=== PATIENT | male | born 1985 | race American Indian/Alaskan Native ===

== ENCOUNTER 2016-11-27 02:32 | Emergency (ER) | payer SELFPAY ==
[2016-11-27 02:47] VITALS: BP 164/98
[2016-11-27 03:18] LABS: Basophils % (Auto) 0.4 % (0.0-1.8); Eosinophils % (Auto) 3.5 % (0.0-4.3); Hematocrit 44.8 % (35.5-45.6); Hemoglobin 15.1 gm/dl (11.8-15.2); Mean Corpuscular HGB Conc 34 % (32-34); Mean Corpuscular Hemoglobin 30 pg (28-32); Mean Corpuscular Volume 90 fl (84-94); Platelet Count 283 K/mm3 (140-440); Red Blood Count 4.98 M/mm3 (3.65-5.03); Red Cell Distribution Width 13.7 % (13.2-15.2); White Blood Count 12.1 K/mm3 (4.5-11.0)
[2016-11-27 03:29] LABS: Anion Gap 22 mmol/L; BUN/Creatinine Ratio 14.44; Blood Urea Nitrogen 13 mg/dL (9-20); Calcium 9.2 mg/dL (8.4-10.2); Carbon Dioxide 22 mmol/L (22-30); Chloride 100.6 mmol/L (98-107); Glucose 120 mg/dL (75-100); Potassium 3.4 mmol/L (3.6-5.0); Sodium 141 mmol/L (137-145)
--- NOTE | 2016-11-30 14:52 | ED Elopement Review ---
ED Pt Elopement review - Results review Lab results: Laboratory Tests 11/27/16 11/27/16 02:48 02:48 WBC 12.1 H RBC 4.98 Hgb 15.1 Hct 44.8 MCV 90 MCH 30 MCHC 34 RDW 13.7 Plt Count 283 Lymph % (Auto) 25.0 Luna % (Auto) 5.7 Eos % (Auto) 3.5 Baso % (Auto) 0.4 Lymph # 3.0 Luna # 0.7 Eos # 0.4 Baso # 0.0 Seg Neutrophils % 65.4 Seg Neutrophils # 7.9 H Sodium 141 Potassium 3.4 L Chloride 100.6 Carbon Dioxide 22 Anion Gap 22 BUN 13 Creatinine 0.9 Estimated GFR > 60 BUN/Creatinine Ratio 14.44 Glucose 120 H Calcium 9.2 Troponin T < 0.010 - Call Back decision Pt Call Back Decision: No action required
== END 2016-11-27 03:00 | disposition left against medical advice (07) ==
LOC: ED 02:32
DX: R07.9 Chest pain, unspecified (principal); R51 Headache; R06.00 Dyspnea, unspecified; I10 Essential (primary) hypertension; Z53.21 Procedure and treatment not carried out due to patient leaving prior to being seen by health care provider
CPT/HCPCS: 36415; 80048; 84484; 85025; 93005; 93010

== ENCOUNTER 2018-01-22 07:33 | Emergency (ER) | payer BC | END 2018-01-22 17:18 | disposition left against medical advice (07) | LOC: ED 07:33 | DX: R06.02 Shortness of breath (principal); Z53.21 Procedure and treatment not carried out due to patient leaving prior to being seen by health care provider ==

== ENCOUNTER 2020-05-10 18:25 | Emergency (ER) | payer SELFPAY ==
--- NOTE | 2020-05-10 18:51 | Emergency Department Report ---
ED General Adult HPI - General Chief complaint: Arrhythmia/Palpitations Stated complaint: DEFIBULATOR GOING OFF PUI?: No Time Seen by Provider: 05/10/20 18:35 Source: patient, EMS ( EMS documentation not available at time of chart dictation ), RN notes reviewed Mode of arrival: Stretcher Limitations: No Limitations - History of Present Illness Initial comments: The patient was evaluated in the emergency department for symptoms described in the history of present illness. He/she was evaluated in the context of the global COVID-19 pandemic, which necessitated consideration that the patient might be at risk for infection with the virus that causes COVID-19. Institutional protocols and algorithms that pertain to the evaluation of patients at risk for COVID-19 are in a state of rapid change based on information released by regulatory bodies including the CDC and federal and state organizations. These policies and algorithms were followed during the patient's care in the emergency department. Please note that these policies, procedures and recommendations changed on a rapid basis. Cardiology: Dr. Sanz at [facility] Patient is a 34-year-old gentleman, he is not known to myself previously. He has a history of cardiomyopathy, with an indwelling ICD/"pacemaker" in situ. It is uncertain to me if he has an ischemic or nonischemic cardiomyopathy. He also has a history of hypertension. He is brought to the hospital by emergency medical services. Patient states "I have not been feeling well for the past few days." He reports a sour taste and sour smell, however, denies loss of taste, denies loss of smell, reports feeling intermittently nauseated, and states that this afternoon, he developed central left-sided and right-sided intermittent nonradiating nonexertional chest pain, shortly thereafter, felt a sensation of "white light", and believe that his defibrillator activated. He endorses compliance with his medications. He stopped smoking tobacco a few weeks ago. He consumes marijuana on a daily ba sis. He denies other drug utilization. He denies headache, neck pain, states he is basically pain-free at this time, denies urinary symptoms, denies focal extremity weakness/numbness. He denies DVT and pulmonary embolism risk factors. He does endorse diffuse intermittent abdominal cramping, present for weeks, years, states "sometimes my gallbladder acts up." He took an aspirin prior to arrival -: Sudden, This afternoon Location: chest, abdomen Radiation: non-radiation Quality: other Consistency: other Improves with: other Worsens with: other - Related Data Home Medications Medication Instructions Recorded Confirmed Last Taken AtorvaSTATin [Lipitor] 20 mg PO QHS 05/10/20 05/10/20 05/09/20 Potassium Chloride [K-Dur] 10 meq PO Q48HR 05/10/20 05/10/20 Unknown Spironolactone [Aldactone] 25 mg PO QDAY 05/10/20 05/10/20 05/10/20 Torsemide [Demadex] 40 mg PO Q48HR 05/10/20 05/10/20 Unknown carvediloL [Coreg] 12.5 mg PO BID 05/10/20 05/10/20 Unknown lisinopriL 20 mg PO DAILY 05/10/20 05/10/20 05/10/20 Allergies Allergy/AdvReac Type Severity Reaction Status Date / Time No Known Allergies Allergy Verified 11/27/16 02:46 ED Review of Systems ROS: Stated complaint: DEFIBULATOR GOING OFF Other details as noted in HPI Constitutional: malaise. denies: fever Eyes: denies: eye discharge, vision change ENT: denies: congestion Respiratory: denies: cough, wheezing Cardiovascular: chest pain, palpitations, other Gastrointestinal: abdominal pain, nausea Genitourinary: denies: dysuria Musculoskeletal: myalgia Neurological: denies: weakness Hematological/Lymphatic: denies: easy bleeding ED Past Medical Hx - Past Medical History Previous Medical History?: Yes Hx Hypertension: Yes - Surgical History Past Surgical History?: Yes Additional Surgical History: hernia repair - Social History Smoking Status: Former Smoker Substance Use Type: Marijuana - Medications Home Medications: Home Medications Medication Instructions Recorded Confirmed Last Taken Type AtorvaSTATin [Lipitor] 20 mg PO QHS 05/10/20 05/10/20 05/09/20 History Potassium Chloride [K-Dur] 10 meq PO Q48HR 05/10/20 05/10/20 Unknown History Spironolactone [Aldactone] 25 mg PO QDAY 05/10/20 05/10/20 05/10/20 History Torsemide [Demadex] 40 mg PO Q48HR 05/10/20 05/10/20 Unknown History carvediloL [Coreg] 12.5 mg PO BID 10/12/20 10/12/20 Unknown History lisinopriL 20 mg PO DAILY 05/10/20 05/10/20 05/10/20 History ED Physical Exam - General Limitations: No Limitations General appearance: alert, in no apparent distress - Head Head exam: Present: atraumatic, normocephalic - Eye Eye exam: Present: normal appearance, EOMI. Absent: nystagmus - ENT ENT exam: Present: normal exam, normal orophraynx, mucous membranes moist, normal external ear exam - Neck Neck exam: Present: normal inspection, full ROM. Absent: tenderness, meningismus - Respiratory Respiratory exam: Present: normal lung sounds bilaterally. Absent: respiratory distress, wheezes, rales, rhonchi, stridor, decreased breath sounds - Cardiovascular Cardiovascular Exam: Present: regular rate, normal rhythm, normal heart sounds. Absent: bradycardia, tachycardia, irregular rhythm, systolic murmur, diastolic murmur, rubs, gallop - GI/Abdominal GI/Abdominal exam: Present: soft, normal bowel sounds. Absent: distended, tenderness, guarding, rebound, rigid, pulsatile mass - Rectal Rectal exam: Present: deferred - Extremities Exam Extremities exam: Present: normal inspection, full ROM, other (2+ pulses noted in the bilateral upper and lower extremities. There is no palpable cord. negative Homans sign. Muscular compartments are soft. The pelvis is stable.). Absent: pedal edema, calf tenderness - Back Exam Back exam: Present: normal inspection, full ROM. Absent: tenderness, CVA tenderness (R), CVA tenderness (L), paraspinal tenderness, vertebral tenderness - Neurological Exam Neurological exam: Present: alert, oriented X3, other (No facial droop. Tongue midline. Extraocular movements intact bilaterally. Facial sensation intact to light touch in V1, V2, V3 distribution bilaterally. 5 and a 5 strength in 4 extremities. Sensation intact to light touch in 4 extremities.). Absent: motor sensory deficit - Psychiatric Psychiatric exam: Present: normal affect, normal mood - Skin Skin exam: Present: warm, dry, intact, normal color. Absent: rash ED Course Vital Signs 05/10/20 05/10/20 05/10/20 18:40 18:49 19:30 Temperature 99 F Pulse Rate 84 80 Respiratory 16 16 18 Rate Blood Pressure 142/101 135/91 [Right] O2 Sat by Pulse 97 95 Oximetry 05/10/20 05/10/2005/10/20 20:00 20:30 21:00 Temperature Pulse Rate 83 71 78 Respiratory 17 13 16 Rate Blood Pressure 147/75 158/101 154/64 [Right] O2 Sat by Pulse 96 95 96 Oximetry - Reevaluation(s) Reevaluation #1: 05/10/20 18:51 Differential diagnosis, include but not limited to: Electrolyte derangement, arrhythmia, appropriate versus inappropriate ICD discharge, GERD, gastritis, hiatal hernia, pneumonia, coronary artery disease, thyroid derangement Assessment and plan: 34-year-old gentleman, who is afebrile, in no acute distress, who is not currently tachycardic, tachypneic or hypoxic, who denies DVT and pulmonary embolism risk factors, PERC negative, low risk by Wells criteria, EKG unchanged from prior, no abdominal tenderness, with nonspecific malaise, over the past few weeks, nonspecific chest pain, now resolved, nonspecific abdominal pain, without abdominal tenderness, mostly resolved, and sensation of potential ICD activation. Place patient on cardiac surgeon, obtain basic laboratory studies, EKG x2, troponin x2. Nursing team to reconcile medications, we will request ICD device interrogation to assist in decision-making and disposition. Reevaluation #2: 05/10/20 19:33 Laboratory studies unremarkable. EKG unchanged from prior. Patient awake, alert, oriented sober, appropriately responsive, he is not lethargic. Reevaluation #3: 05/10/20 19:55 Patient noted to be playing on his cell phone at this time, still remains with a normal mental status, not lethargic, he does not appear to be in any acute distress. Interrogation is pending at this time Reevaluation #4: 05/10/20 20:23 Device interrogation shows run of supraventricular tachycardia, device attempted to shock x2, and then SVT converted spontaneously on its own. Contacted covering cardiology, Dr. Shaw, working with Dr Greer, who is patient's primary regulatory lead. This patient has a known nonischemic cardiomyopathy, with a dual chamber ICD device. He reports the patient's ejection fraction has recovered nicely, on medical th erapy, and the patient's current ejection fraction is approximately 50 to 55%. I discussed the patient's history, physical, pertinent laboratory studies, EKG findings with the aforementioned regulatory lead. He indicates he will have the patient' contact by the office to arrange outpatient follow-up later on this week. Patient continues to look clinically benign, in no acute distress, and continues to play with his cellular phone. Reevaluation #5: 05/10/20 20:52 Repeat EKG unchanged from prior. Patient resting comfortably on his stretcher at this time, he is in no acute distress. Final troponin is pending. 05/10/20 21:56 Troponin negative x2. EKG unchanged x2. Vital signs are reviewed and appreciated. Patient resting comfortably for hours without clinical decompensation. He is suitable to follow-up with his outpatient regulatory lead later on this week. ED Medical Decision Making - Lab Data Result diagrams: 05/10/20 18:50 05/10/20 18:50 Vital Signs 05/10/20 18:40 Temperature 99 F Pulse Rate 84 Respiratory 16 Rate Blood Pressure 142/101 [Right] O2 Sat by Pulse 97 Oximetry Lab Results 05/10/20 05/10/20 05/10/20 Range/Units 18:50 18:50 18:50 Hgb 16.2 H (11.8-15.2) gm/dl Hct 48.0 H (35.5-45.6) % Plt Count 363 (140-440) K/mm3 PT 13.0 (12.2-14.9) Sec. INR 0.97 (0.87-1.13) Sodium 133 L (137-145) mmol/L Potassium 3.6 (3.6-5.0) mmol/L Chloride 91.6 L (98-107) mmol/L Carbon Dioxide 24 (22-30) mmol/L Anion Gap 21 mmol/L BUN 16 (9-20) mg/dL Creatinine 1.2 (0.8-1.3) mg/dL Estimated GFR > 60 ml/min BUN/Creatinine Ratio 13 % Glucose 127 H (75-100) mg/dL Calcium 9.9 (8.4-10.2) mg/dL Magnesium (1.7-2.3) mg/dL Total Creatine Kinase (55-170) units/L Troponin T < 0.010 (0.00-0.029) ng/mL 05/10/20 Range/Units 18:50 Hgb (11.8-15.2) gm/dl Hct (35.5-45.6) % Plt Count (140-440) K/mm3 PT (12.2-14.9) Sec. INR (0.87-1.13) Sodium (137-145) mmol/L Potassium (3.6-5.0) mmol/L Chloride (98-107) mmol/L Carbon Dioxide (22-30) mmol/L Anion Gap mmol/L BUN (9-20) mg/dL Creatinine (0.8-1.3) mg/dL Estimated GFR ml/min BUN/Creatinine Ratio % Glucose (75-100) mg/dL Calcium (8.4-10.2) mg/dL Magnesium 2.40 H (1.7-2.3) mg/dL Total Creatine Kinase 295 H (55-170) units/L Troponin T (0.00-0.029) ng/mL - EKG Data -: EKG Interpreted by Pa EKG shows normal: sinus rhythm Rate: normal - EKG Data Interpretation: unchanged when compared t 05/10/20 18:50 EKG today shows sinus rhythm, 84 bpm, there is a normal axis, there is high left ventricular voltage, the QTC is 451 ms. This EKG is abnormal. The EKG is not a STEMI. The EKG appears to be unchanged from prior EKG from November 2016. - Radiology Data Radiology results: pending, report reviewed, image reviewed Print Report Referring Physician: MARS BLOOM Patient Name: ANGELICA WEAVER Date of : 1985 Sex: Male Report Date: 2020-05-10 Report Status: Finalized Findings [facility] [address] [place] [address] XRay Report Signed Patient: ANGELICA WEAVER MR#: [id number] : 1985 Acct:[id number] Age/Sex: 34 / M ADM Date: 05/10/20 Loc: ED Att ending Dr: Ordering Physician: MARS BLOOM MD Date of Service: 05/10/20 Procedure(s): XR chest 1V ap Accession Number(s): [id number] cc: MARS BLOOM MD Fluoro Time In Minutes: CHEST 1 VIEW 05/10/2020 6:14 PM INDICATION / CLINICAL INFORMATION: Chest pain, shortness of breath. COMPARISON: None available. FINDINGS: SUPPORT DEVICES: Cardiac pacemaker/ICD appears appropriately positioned. HEART / MEDIASTINUM: No significant abnormality. LUNGS / PLEURA: No significant pulmonary or pleural abnormality. No pneumothorax. ADDITIONAL FINDINGS: No significant additional findings. IMPRESSION: 1. No acute findings. Signer Name: Lawson Membreno MD Signed: 05/10/2020 7:20 PM Workstation Name: [id number] Transcribed By: ADAN Dictated By: Lawson Membreno MD Electronically Authenticated By: Lawson Membreno MD Signed Date/Time: 05/10/201919 DD/ 19 TD/TT: Critical care attestation.: If time is entered above; I have spent that time in minutes in the direct care of this critically ill patient, excluding procedure time. ED Disposition Clinical Impression: History of supraventricular tachycardia, History of cardiomyopathy, ICD (implantable cardioverter-defibrillator), dual, in situ, History of marijuana use Disposition: DC-01 TO HOME OR SELFCARE Is pt being admited?: No Does the pt Need Aspirin: No Condition: Stable Additional Instructions: Avoid consumption of alcohol, tobacco, smoke products and marijuana/cannabis. Continue current outpatient medications. Minimize/avoid consumption of caffeine, energy drinks, and stimulants. We contacted covering cardiology for your primary regulatory lead, Dr. Greer, and they should be contacting the patient within the next day or so to arrange outpatient follow-up. However, we do recommend the patient also reach out to his primary regulatory lead, to arrange close outpatient follow-up, we recommend follow-up within the next 3 to 5 days. Please return to the emergency room right away with new pain, worsening pain, migration of pain, projectile vomiting, change in mental status, confusion, inability to tolerate liquid feeds, new, worsened or different symptoms not present on the initial emergency room evaluation. Referrals: daksha greer [Other] - 3-5 Days Forms: Work/School Release Form(ED) Heart Score - HEART Score History: Slightly suspicious EKG: Non-specific Age: < 45 Risk factors: 1-2 risk factors Troponin: < normal limit HEART Score: 2 - Critical Actions Critical Actions: 0-3 pts:0.9-1.7%risk of adverse cardiac event.Candidate for discharge
[2020-05-10 19:02] LABS: Hemoglobin 16.2 gm/dl (11.8-15.2)
[2020-05-10 19:15] LABS: INR 0.97 (0.87-1.13)
--- NOTE | 2020-05-10 19:25 | XRay Report ---
CHEST 1 VIEW 05/10/2020 6:14 PM INDICATION / CLINICAL INFORMATION: Chest pain, shortness of breath. COMPARISON: None available. FINDINGS: SUPPORT DEVICES: Cardiac pacemaker/ICD appears appropriately positioned. HEART / MEDIASTINUM: No significant abnormality. LUNGS / PLEURA: No significant pulmonary or pleural abnormality. No pneumothorax. ADDITIONAL FINDINGS: No significant additional findings. IMPRESSION: 1. No acute findings. Signer Name: Lawson Membreno MD Signed: 05/10/2020 7:20 PM Workstation Name: [id number]
[2020-05-10 19:28] LABS: BUN/Creatinine Ratio 13; Blood Urea Nitrogen 16 mg/dL (9-20); Calcium 9.9 mg/dL (8.4-10.2); Hemolysis Index 9
[2020-05-10 21:39] VITALS: BP 154/64
== END 2020-05-10 22:13 | disposition home or self-care (01) ==
LOC: ED 18:25
DX: R51.9 Headache, unspecified (principal); I10 Essential (primary) hypertension; F12.90 Cannabis use, unspecified, uncomplicated; Z86.79 Personal history of other diseases of the circulatory system; Z95.810 Presence of automatic (implantable) cardiac defibrillator; Z87.898 Personal history of other specified conditions; Z79.899 Other long term (current) drug therapy; Z87.891 Personal history of nicotine dependence; Z98.890 Other specified postprocedural states
CPT/HCPCS: 36415; 71045; 80048; 82550; 83735; 84443; 84484; 85014; 85018; 85049; 85610; 93005

== ENCOUNTER → 2020-05-13 14:03 | Emergency (ER) | payer MEDICAID | END | disposition left against medical advice (07) | LOC: ED 14:03 | DX: R55 Syncope and collapse (principal); Z53.21 Procedure and treatment not carried out due to patient leaving prior to being seen by health care provider ==